=== PATIENT | female | born 1935 | race Caucasian/White ===

== ENCOUNTER 2016-08-28 09:09 | Inpatient (IN) | payer BC, OTHER ==
[~2016-08-28] VITALS: Ht 154.9 cm; Wt 54.4 kg
[~2016-08-28 09:09] MED LIST: ALPR0.255 PO; GABA-532 PO; METH4TAB16 PO
--- NOTE | 2016-08-28 09:17 | NUR ---
Pt bb self for left sided face and eye numbness x 2 weeks. PLaced on monitor. Awaiting md order. Pt able to move all extremities.
--- NOTE | 2016-08-28 09:20 | NUR ---
LAC #18 IV ACCESS. BLOOD SAMPLE COLLECTED SENT TO LAB
[2016-08-28 09:43] LABS: EOSINOPHILS # (AUTO) 0.2 /CMM (0.0-0.7); EOSINOPHILS % (AUTO) 1.6 % (0.0-6.0); HEMATOCRIT 43 % (33-45); HEMOGLOBIN 14.3 g/dL (11.5-14.8); LYMPHOCYTES # (AUTO) 1.5 /CMM (0.8-4.8); MEAN CORPUSCULAR HEMOGLOBIN 30 PG (26.0-33.0); MEAN CORPUSCULAR HGB CONC 33 g/dl (31.0-36.0); MEAN CORPUSCULAR VOLUME 89 fL (82-100); MONOCYTES # (AUTO) 0.4 /CMM (0.1-1.30); MONOCYTES % (AUTO) 2.9 % (2.0-12.0); NEUTROPHILS # (AUTO) 11.4 /CMM (1.8-8.9); NEUTROPHILS % (AUTO) 84.5 % (43.0-81.0); PLATELET COUNT (AUTO) 336 /CMM (150-450); RDW COEFFICIENT OF VARIATION 14.2 (11.5-15.0); RED BLOOD CELL COUNT(AUTO) 4.82 MIL/uL (4.0-5.2); WHITE BLOOD COUNT (AUTO) 13.4 K/uL (4.3-11.0)
--- NOTE | 2016-08-28 09:47 | NUR ---
XRAY AT BEDSIDE
[2016-08-28 09:54] LABS: CALCIUM, SERUM 8.7 mg/dL (8.5-10.1); CARBON DIOXIDE 27 mmol/L (21-32); CHLORIDE 105 mmol/L (98-107); CREATININE 0.9 mg/dL (0.6-1.3); GLUCOSE 93 mg/dL (74-106); SODIUM SERUM 142 mmol/L (136-145); UREA NITROGEN, BLOOD 13 mg/dL (7-18)
[2016-08-28 10:00] LABS: INR 0.89 (0.87-1.13); PROTHROMBIN TIME 9.4 SECS (9.5-12.7)
[2016-08-28 10:01] LABS: TROPONIN I < 0.017 ng/mL (0.00-0.056)
--- NOTE | 2016-08-28 11:34 | NUR ---
DR.SHAO PULIDO
--- NOTE | 2016-08-28 11:51 | NUR ---
GAVE REPORT TO [facility] TELE ROOM 111-1 DR NICK DX NUMBNESS
--- NOTE | 2016-08-28 11:51 | NUR ---
TRANSFER VIA ACLS PROTOCOL
[2016-08-28] MEDS ORDERED: ASPIRIN 81 MG TAB.CHEW PO ONE (12:00)
[2016-08-28] MEDS ORDERED: ASPIRIN EC 81 MG TABLET.DR PO ONE (12:03)
[2016-08-28 12:15] VITALS: BP 148/83
--- NOTE | 2016-08-28 12:15 | NUR ---
RN NOTES 81 YEARS OLD FEMALE RECEIVED ON THE FLOOR , A/Ox4, C/O L SIDE FACIAL NUMBNESS , RESPIRATION EVEN AND UNLABORED, ON RA NO SOB NOTED, ON TELE SR IN 70'S , NO SKIN ISSUES NOTED, PT ORIENTED TO ROOM , CALL LIGHT ,AND SURROUNDING , SR UPx3, CALL LIGHT WITHIN EASY REACH , CONTINUE TO MONITOR PT CLOSELY AND NOTIFY MD FOR ANY SIGNIFICANT CHANGES
[2016-08-28] MEDS ORDERED: ATORVASTATIN 10 MG TABLET PO SCH ×2 (13:00→21:00)
[2016-08-28] MEDS ORDERED: ASPIRIN EC 81 MG TABLET.DR PO SCH (13:00)
--- NOTE | 2016-08-28 15:52 | NUR ---
RN NOTES DISCHARGE INSTRUCTION GIVEN , PT VERBALIZES UNDERSTANDING , H/L AND TELE D/RADHA. PT LEFT THE FLOOR AMBULATORY TO MAIN ENTRANCE ACCOMPANIED BY STAFF MEMBERS IN STABLE CONDITION .
[2016-08-28] MEDS ORDERED: ALPRAZOLAM 0.25 MG TABLET PO PRN (17:00)
== END 2016-08-28 15:51 | disposition home or self-care (01) | DRG 880 ==
LOC: ER 09:10 → TELE1 11:31
PROVIDERS: ADMIT Internal Medicine; ATTEND Internal Medicine
DX: F41.9 Anxiety disorder, unspecified (principal); R20.2 Paresthesia of skin
CPT/HCPCS: 36415; 70450-TC; 70551-TC; 71010-TC; 80048-TC; 82962-TC; 84484-TC; 85025-TC; 85730-TC; 87081-TC; A4606; Z7610